=== PATIENT | male | born 1955 | race Caucasian/White ===

== ENCOUNTER 2020-08-08 10:42 | Inpatient (IN) | payer OTHER ==
[~2020-08-08] VITALS: Ht 185.4 cm; Wt 52.1 kg
[2020-08-08 07:00] VITALS: BP 120/85
[2020-08-08 11:00] VITALS: BP 119/71
[2020-08-08] MEDS ORDERED: MORPHINE SULFATE 4 MG/ML VIAL. IV PRN (11:00)
[2020-08-08] MEDS ORDERED: IV NORMAL SALINE 1000ML BAG 1,000 ML IV SCH (11:02)
[2020-08-08] MEDS ORDERED: BISACODYL 10 MG SUPP.RECT. PR PRN (11:15)
[2020-08-08] MEDS ORDERED: ONDANSETRON PF 4 MG/2 ML VIAL. IVP PRN (11:15)
[2020-08-08] MEDS ORDERED: NALOXONE 0.4 MG/ML VIAL. IV PRN ×2 (11:15→11:30)
[2020-08-08] MEDS ORDERED: ACETAMINOPHEN 650 MG SUPP.RECT. PR PRN (11:15)
[2020-08-08] MEDS: IV NORMAL SALINE 1000ML BAG 1,000 ML IV SCH (11:30)
[2020-08-08] MEDS: MORPHINE SULFATE 30 ML IV PRN ×3 (11:59→23:22)
[2020-08-08] MEDS ORDERED: SCOPOLAMINE 1.5MG PATCH. TD SCH (12:00)
[2020-08-08 19:00] VITALS: BP 123/89
[2020-08-09] MEDS: MORPHINE SULFATE 30 ML IV PRN ×2 (05:25→11:37)
[2020-08-09 07:06] VITALS: BP 132/82
--- NOTE | 2020-08-09 09:34 | PN ---
DATE: SUBJECTIVE: The patient is resting slightly propped up, sleeping comfortably. He does open his eyes, drifts back to sleep. PHYSICAL EXAMINATION: GENERAL: When I examined him, he looked pale, extremely cachectic, jaundiced, but no cyanosis. No lymphadenopathy, no thyromegaly. No jugular venous distention. No lower limb edema. VITAL SIGNS: Her heart rate was 112, blood pressure was 132/82, temperature was 100.4, respiratory rate was 18 and oxygen saturation was 94% on room air. HEAD, EYES, EARS, NOSE, AND THROAT: Showed normocephalic, atraumatic. NECK: Supple. HEART: Showed normal first and second heart sounds. No gallop or murmur. CHEST: Clear to auscultation. No crepitation or rhonchi. ABDOMEN: Scaphoid, soft, nontender. NEUROLOGIC: He was heavily sedated. His intake and output are incompletely recorded. 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 The patient is now inpatient hospice. PLAN: To continue with IV morphine, continue with Ativan, scopolamine, Tylenol for fever. ZHANNA PALENCIA MD DR: CAREY/guadalupe JOB#: [id number] / [id number]
[2020-08-09] MEDS: IV NORMAL SALINE 1000ML BAG 1,000 ML IV SCH (11:30)
== END 2020-08-09 17:20 | DRG 375 ==
LOC: 4 NORTH 10:42
PROVIDERS: ADMIT Internal Medicine; ATTEND Internal Medicine
DX: C18.9 Malignant neoplasm of colon, unspecified (principal); R64 Cachexia; Z68.1 Body mass index [BMI] 19.9 or less, adult; C78.7 Secondary malignant neoplasm of liver and intrahepatic bile duct; C79.51 Secondary malignant neoplasm of bone; Z51.5 Encounter for palliative care
CPT/HCPCS: J2060; J2270; J7030; G0378